=== PATIENT | female | born 1955 | race Caucasian/White ===

== ENCOUNTER 2019-09-22 08:37 | Day surgery (SDC) | payer MEDICARE ==
[2019-09-21 15:10] VITALS: BMI 34.0
[~2019-09-22 08:37] MED LIST: EPINEPHrine 0.3 MG in Ophthalmic Irrigation Solution 500 ML IRR SCH; Fentanyl 100 MCG/2 ML VIAL ONE; Midazolam HCl 2 mg/2 ml Vial ONE
[2019-09-22] MEDS ORDERED: Cyclopentolate 1% Opth Drop 2 ML BOT ONE (09:49)
[2019-09-22] MEDS ORDERED: Phenylephrine 2.5% Ophth Soln 5 ML BOT ONE (09:49)
[2019-09-22] MEDS ORDERED: Lidocaine 4% PF 5 ML AMP ONE (13:10)
[2019-09-22] MEDS ORDERED: PROPOFOL 200 MG/20 ML VIAL ONE (13:10)
[2019-09-22] MEDS ORDERED: Lidocaine 1% PF 5 ML VIAL ONE (13:10)
[2019-09-22] MEDS ORDERED: Bupivacaine PF 0.75% SDV 10 ML ONE (13:10)
[2019-09-22] MEDS ORDERED: Metoprolol Tartrate 5 MG/5 ML VIAL ONE (13:10)
[2019-09-22] MEDS ORDERED: Maxitrol 0.1% Opth Oint 3.5 GM TUBE ONE (13:10)
[2019-09-22] MEDS ORDERED: CEFAZOLIN 1 GM VIAL ONE (13:10)
[2019-09-22] MEDS ORDERED: Triamcinolone 40 MG/ML VIAL ONE (13:10)
--- NOTE | 2019-09-22 14:26 | OP ---
DATE OF PROCEDURE: 09/22/2019 PRINCIPAL PREOPERATIVE DIAGNOSES: 1. Vitreous hemorrhage, right eye. 2. Proliferative diabetic retinopathy, right eye. POSTOPERATIVE DIAGNOSES: 1. Vitreous hemorrhage, right eye. 2. Proliferative diabetic retinopathy, right eye. PROCEDURES PERFORMED: 1. A 25-gauge pars plana vitrectomy, right eye. 2. Endolaser panretinal photocoagulation, right eye. ESTIMATED BLOOD LOSS: None. SPECIMENS REMOVED: None. COMPLICATIONS: None. ANESTHESIA: MAC with sub-Tenon's block. DESCRIPTION OF PROCEDURE: The patient was identified in the preoperative holding area, where the correct eye being the right eye was marked for surgery. The patient was taken to the operating room, where MAC anesthesia was induced. The right eye was prepped and draped in the usual sterile ophthalmic fashion for surgery. A wire-clip lid speculum was placed. A standard 25-gauge pars plana vitrectomy platform was fashioned with trocars placed approximately 3.5 mm from the limbus. The infusion was noted to be within the vitreous cavity prior to being turned on to an infusion pressure of 30 mmHg. The light pipe and microvitrector were introduced in the eye under visualization of the BIOM viewing system. A moderate vitreous hemorrhage was noted, partially obscuring view of the fundus. A careful core and peripheral shave vitrectomy were performed in this previously vitrectomized eye, which allowed for clearance of the vitreous hemorrhage. Following vitrectomy, Endolaser was used to provide additional panretinal photocoagulation in addition to the preexisting laser posterior to it. Following completion of Endolaser, the cannulas were sequentially removed and all sclerotomies were noted to be watertight. Subconjunctival Ancef and Kenalog were injected. The wire-clip lid speculum was removed followed by application of TobraDex ophthalmic ointment and a light patch and shield. The patient tolerated the procedure well and was taken to the outpatient recovery area in good condition. Job ID: [id number]
== END 2019-09-22 14:45 | disposition home or self-care (01) ==
LOC: SDC 08:37
PROVIDERS: ATTEND Ophthalmology Retina Specialist
PROC: 08T43ZZ Resection of Right Vitreous, Percutaneous Approach (ICD-10-PCS; principal; 2019-09-22)
PROC: 08QE3ZZ Repair Right Retina, Percutaneous Approach (ICD-10-PCS; 2019-09-22)
DX: H43.11 Vitreous hemorrhage, right eye (principal); E10.3591 Type 1 diabetes mellitus with proliferative diabetic retinopathy without macular edema, right eye; I25.10 Atherosclerotic heart disease of native coronary artery without angina pectoris; I10 Essential (primary) hypertension; Z79.899 Other long term (current) drug therapy; Z88.5 Allergy status to narcotic agent; Z95.1 Presence of aortocoronary bypass graft
CPT/HCPCS: 36416; J0171; J0690; J2001; J2250; J2704; J3010; J3301; J3490